=== PATIENT | male | born 1970 | race African-American/Black ===

== ENCOUNTER 2023-11-18 05:37 | Emergency (ER) | payer MEDICAID, OTHER ==
[~2023-11-18] VITALS: Ht 177.8 cm; Wt 95.0 kg
[2023-11-18 05:41] VITALS: O2SAT 99
[2023-11-18] MEDS: IBUPROFEN 600MG TABLET PO ONE (06:29)
[2023-11-18] MEDS: ACETAMINOPHEN 325MG TABLET PO ONE (06:30)
[2023-11-18] MEDS: CARBAMAZEPINE 100MG TABLET CHEW PO ONE (06:30)
[2023-11-18] MEDS ORDERED: CARB100T4 PO (07:02)
[2023-11-18] MEDS ORDERED: IBUP-2029 PO (07:02)
[2023-11-18] MEDS ORDERED: TOPUD PO (07:02)
[2023-11-18 07:11] VITALS: BP 127/77; PULSE 70; RESP 18; TEMP 98.4
== END 2023-11-18 07:12 | disposition home or self-care (01) ==
LOC: ER 05:37
DX: M79.2 Neuralgia and neuritis, unspecified (principal); Z98.890 Other specified postprocedural states
CPT/HCPCS: 99284

== ENCOUNTER 2025-03-16 11:50 | Emergency (ER) | payer MEDICAID, OTHER ==
[~2025-03-16] VITALS: Ht 177.8 cm; Wt 95.0 kg
[~2025-03-16 11:50] MED LIST: CARB100T12 PO; IBUP-2029 PO; TOPUD PO
[2025-03-16 12:08] VITALS: O2SAT 98
[2025-03-16] MEDS: KETOROLAC 15MG/ML VIAL IM ONE (14:14)
[2025-03-16] MEDS: LIDOCAINE 5% PATCH TOP SCH (14:14)
[2025-03-16] MEDS ORDERED: LIDO700A30 TP (15:15)
[2025-03-16] MEDS ORDERED: IBUP-2028 MT (15:15)
[2025-03-16 15:32] VITALS: BP 135/81; PULSE 78; RESP 19; TEMP 36.3; O2SAT 99
== END 2025-03-16 15:33 | disposition home or self-care (01) ==
LOC: ER 11:50
DX: S39.012A Strain of muscle, fascia and tendon of lower back, initial encounter (principal); M25.532 Pain in left wrist; Z79.1 Long term (current) use of non-steroidal anti-inflammatories (NSAID); Z90.5 Acquired absence of kidney; V43.52XA Car driver injured in collision with other type car in traffic accident, initial encounter; Y93.89 Activity, other specified; Y92.89 Other specified places as the place of occurrence of the external cause; Y99.8 Other external cause status
CPT/HCPCS: 99284; 73090; 73110; 96372; J1885

== ENCOUNTER 2025-09-18 19:31 | Emergency (ER) | payer MEDICAID ==
[~2025-09-18] VITALS: Ht 177.8 cm; Wt 92.3 kg
[~2025-09-18 19:31] MED LIST changes: +IBUP-1455 PO; +IBUP-2028 MT; -IBUP-2029 PO; +LIDO700A30 TP
[2025-09-18 19:33] VITALS: O2SAT 99
[2025-09-18] MEDS: LIDOCAINE HCL/EPINEPHRINE 1%-EPI 1:100,000 20ML VIAL MC ONE (20:45)
[2025-09-18] MEDS: TETANUS, DIPHTHERIA, PERTUSSIS VAC/PF 0.5ML (>10YR OLD) IM ONE (21:39)
[2025-09-18] MEDS ORDERED: SULF1TAB48 MT (21:53)
[2025-09-18 22:31] VITALS: BP 110/71; PULSE 90; RESP 20; TEMP 36.8; O2SAT 99
[2025-09-27] MEDS ORDERED: IBUP-1455 MT (04:09)
[2025-09-27] MEDS ORDERED: AMOX1TAB16 MT (04:09)
[2025-09-27] MEDS ORDERED: SULF1TAB48 MT (04:09)
== END 2025-09-18 22:40 | disposition home or self-care (01) ==
LOC: ER 19:43
DX: L02.214 Cutaneous abscess of groin (principal); Z79.1 Long term (current) use of non-steroidal anti-inflammatories (NSAID); Z90.5 Acquired absence of kidney; Z79.899 Other long term (current) drug therapy
CPT/HCPCS: 90715; 10060; 90471; 99283; J2004; Z7610

== ENCOUNTER 2025-09-21 07:09 | Emergency (ER) | payer MEDICAID ==
[~2025-09-21] VITALS: Ht 177.8 cm; Wt 94.0 kg
[~2025-09-21 07:09] MED LIST changes: +SULF1TAB48 MT
[2025-09-21 07:35] VITALS: O2SAT 99
[2025-09-21 09:10] VITALS: BP 111/70; PULSE 80; RESP 15; TEMP 36.7; O2SAT 99
[2025-09-27] MEDS ORDERED: SULF1TAB48 MT (04:09)
[2025-09-27] MEDS ORDERED: IBUP-1455 MT (04:09)
[2025-09-27] MEDS ORDERED: AMOX1TAB16 MT (04:09)
== END 2025-09-21 09:12 | disposition home or self-care (01) ==
LOC: ER 07:09
DX: L02.214 Cutaneous abscess of groin (principal)
CPT/HCPCS: 99282